=== PATIENT | female | born 1960 | race African-American/Black ===

== ENCOUNTER 2017-05-08 04:01 | Emergency (ER) | payer MEDICARE, MEDICAID ==
[~2017-05-08] VITALS: Ht 170.2 cm; Wt 114.0 kg
[~2017-05-08 04:01] MED LIST: flexeril; none reported
== END 2017-05-08 09:23 | disposition left against medical advice (07) ==
LOC: ER 04:01
DX: R05 Cough (principal); Z53.21 Procedure and treatment not carried out due to patient leaving prior to being seen by health care provider

== ENCOUNTER 2017-09-26 14:30 | Emergency (ER) | payer MEDICARE, MEDICAID ==
[~2017-09-26] VITALS: Ht 170.2 cm; Wt 111.0 kg
[2017-09-26] MEDS ORDERED: ASPIRIN 325MG EC TABLET PO ONE (15:00)
[2017-09-26 16:19] LABS: BASOPHILS % 1.3 % (0.0-2.0); EOSINOPHILS % 2.5 % (0.0-5.0); HEMATOCRIT. 37.6 % (36.0-48.0); HEMOGLOBIN. 12.5 g/dL (12.0-16.0); MEAN CORPUSCULAR HEMOGLOBIN 29.2 pg (28.0-32.0); MEAN CORPUSCULAR VOLUME 87.9 fL (81.0-99.0); MEAN PLATELET VOLUME 8.7 fl (7.4-10.4); MONOCYTES % 4.7 % (2.0-8.0); NEUTROPHILS % 57.5 % (40.0-76.0); PLATELET 285 x1000/uL (130-400); RED BLOOD CELL COUNT 4.28 mill/uL (4.2-5.4); RED CELL DISTRIBUTION WIDTH 14.4 % (11.6-14.6)
[2017-09-26 16:25] LABS: CHLORIDE 104 mEq/L (98-107)
[2017-09-26 17:03] LABS: PARTIAL THROMBOPLASTIN TIME 27.1 sec (23.4-31.0); PROTHROMBIN TIME 10.6 sec (9.4-11.6)
[2017-09-26 20:45] VITALS: BP 120/68
== END 2017-09-26 20:45 | disposition home or self-care (01) ==
LOC: ER 16:11
DX: R07.89 Other chest pain (principal); F41.9 Anxiety disorder, unspecified; I11.9 Hypertensive heart disease without heart failure; I51.7 Cardiomegaly; K21.9 Gastro-esophageal reflux disease without esophagitis; Z79.82 Long term (current) use of aspirin; Z91.013 Allergy to seafood
CPT/HCPCS: 36415; 71045; 80053; 83690; 84484; 85025; 85610; 85730; 93005; 99285

== ENCOUNTER 2018-10-05 17:05 | Emergency (ER) | payer MEDICARE, MEDICAID ==
[~2018-10-05] VITALS: Ht 170.2 cm; Wt 113.0 kg
[~2018-10-05 17:05] MED LIST changes: +CLOB15CR4 TP; +DICL100G31 TP; +HYDR12.54 MT; +IBUP-2030 MT; +LEVO500T2 PO; +NAPR-681 MT
[2018-10-05 17:07] VITALS: BP 140/86
== END 2018-10-05 20:05 | disposition left against medical advice (07) ==
LOC: ER 17:05
DX: Z53.21 Procedure and treatment not carried out due to patient leaving prior to being seen by health care provider (principal); R07.9 Chest pain, unspecified
CPT/HCPCS: 93005

== ENCOUNTER 2019-06-18 20:24 | Emergency (ER) | payer MEDICARE, MEDICAID ==
[~2019-06-18] VITALS: Ht 167.6 cm; Wt 111.0 kg
[2019-06-19] MEDS ORDERED: IBUPROFEN 600MG TABLET PO ONE (00:15)
[2019-06-19] MEDS ORDERED: ALBUTEROL (0.083%) 2.5MG/3ML NEB HHN STA (00:22)
[2019-06-19] MEDS ORDERED: IPRATROPIUM BROMIDE (0.02%) 0.5MG/2.5ML NEB HHN STA (00:22)
[2019-06-19 02:06] VITALS: BP 129/72
== END 2019-06-19 02:07 | disposition home or self-care (01) ==
LOC: ER 20:24
DX: J20.9 Acute bronchitis, unspecified (principal); I11.0 Hypertensive heart disease with heart failure; I50.9 Heart failure, unspecified; Z91.013 Allergy to seafood
CPT/HCPCS: 71045; 87070; 87430; 87804; 94644; 99285

== ENCOUNTER 2021-09-13 16:38 | Emergency (ER) | payer MEDICARE, MEDICAID ==
[~2021-09-13] VITALS: Ht 170.2 cm; Wt 118.0 kg
[2021-09-13 16:46] VITALS: BP 110/73
[2021-09-13] MEDS ORDERED: CLOT24CR TP (18:43)
== END 2021-09-13 18:50 | disposition home or self-care (01) ==
LOC: ER 16:38
DX: R21 Rash and other nonspecific skin eruption (principal); I11.0 Hypertensive heart disease with heart failure; I50.9 Heart failure, unspecified
CPT/HCPCS: 99281; 99282